=== PATIENT | female | born 1980 | race Hispanic/Latino ===

== ENCOUNTER → 2020-04-23 | Outpatient (CLI) | payer OTHER ==
[~2020-04-23] MED LIST: IBUP-2077 PO; PREN1TAB80 PO
== END | disposition home or self-care (01) ==
LOC: RAH 04-22 13:03
PROVIDERS: ATTEND Family Medicine
DX: Z13.6 Encounter for screening for cardiovascular disorders (principal); R07.9 Chest pain, unspecified
CPT/HCPCS: 75571